=== PATIENT | male | born 1990 | race Caucasian/White ===

== ENCOUNTER 2016-11-16 09:42 | Emergency (ER) | payer SELFPAY ==
[2016-11-16] MEDS ORDERED: NORMAL SALINE 10 ML SYRINGE FLUSH IVP PRN (09:46)
[2016-11-16] MEDS ORDERED: Sodium Chloride 0.9% 1,000 ML PRIMARY IV ONE ×2 (09:46→10:57)
[2016-11-16] MEDS ORDERED: ASPIRIN 81 MG (BABY) CHEWABLE TABLET PO ONE (09:46)
--- NOTE | 2016-11-16 09:46 | PDOC ---
Chest Pain HPI - General Chief Complaint: Chest Pain Stated Complaint: chest pain Date Seen by Provider: 11/16/16 Time Seen by Provider: 09:46 Source: Patient Exam Limitations: POSITIVE: No limitations - History of Present Illness Initial Comments: Kong is a 26 year old man coming in today with chest pain and shortness of breath, onset last night. He had a hard time sleeping due to the discomfort. It was a sharp pain in his left chest that shot to his left shoulder, lasted a few seconds at a time, but would happen several times per hour. His symptoms are better now, but he is still very anxious about it. He reports compliance with his home meds. Last month he overdosed on meth/bath salts, had to go to [facility] due to being intubated and in renal failure. He reports a lot of stress in his life lately and thinks he might just be anxious, but wanted to get checked out. He also didn't take his torsemide for the past 2 days because he thought he was getting dehydrated and his urine was frothy, he says he has "been in rhabdo" since last month. He denies doing any drugs since october 24 2016. - Patient Home Medications Home Medications: Home Medications Albuterol Sulfate [Ventolin Hfa] 1 puff INH Q6H 11/23/14 Montelukast Sodium [Singulair] 10 mg PO DAILY 01/23/15 Amlodipine Besylate 5 mg PO DAILY 11/16/16 Budesonide/Formoterol Fumarate [SYMBICORT] 2 inh IH BID 11/16/16 Cetirizine HCl [Zyrtec] 10 mg PO DAILY 11/16/16 Potassium Chloride [Klor-Con] 1 tab PO DAILY 11/16/16 Torsemide [Demadex] 30 mg PO DAILY 11/16/16 - Patient Allergies Allergies/Adverse Reactions: Allergies Allergy/AdvReac Type Severity Reaction Status Date / Time No Known Allergies Allergy Verified 11/16/16 09:48 Past Medical History - heen HEENT History: Denies History Cardiovascular History: Arrhythmia Respiratory History: Asthma Gastrointestinal History: Denies History Genitourinary History: Denies History Endocrine History: Denies History Musculoskeletal History: Denies History, Other (please comment) Additional Musculoskeletal History: had some type of minor surgical procedure on disk but unsure what Neurological History: Denies History Blood Disorders: Denies History Psychiatric History: Depression, ADHD, Other (please comment) Additional Psychiatric History: ODD History of Sexually Transmitted Diseases: No Cancer History: Denies History History of MDRO: No History of Other Communicable Diseases: No Alcohol Use: Rarely Substance Use Type: Methamphetamines Previous Surgical History: No Anesthesia Reactions: No Malignant Hyperthermia: No Significant Family History: No pertinent family hx Past Medical History Reviewed: Reviewed - No Changes ROS - Limitations ROS Limitations: No Limitations Constitution: REPORTS: Denies Symptoms Cardiovascular: REPORTS: Chest Pain, Heart Racing, Heart Palpitations Respiratory: REPORTS: Shortness Of Breath Neurological: REPORTS: Dizziness Gastrointestinal: REPORTS: Denies GI Symptoms Endocrine: REPORTS: Denies Symptoms Musculoskeletal: REPORTS: Denies MS Symptoms Eyes: REPORTS: Denies Symptoms ENT: REPORTS: Denies Symptoms Skin: REPORTS: Denies Skin Symptoms Lympathic: REPORTS: Denies Lympathic Symptoms Immunologic: POSITIVE: Denies Symptoms Chest Pain PE - General Appearance General Appearance: REPORTS: Alert, Anxious - HEENT HEENT: POSITIVE: Head Inspection Nml, Eyes Inspection Nml, Ears Inspection Nml, Nose Inspection Nml, Oral/Dental Inspect. Nml, Pharynx Inspect. Nml, PERRL, EOMI - Neck Neck: REPORTS: Normal Inspection, No Carotid Bruit - Respiratory Respiratory: REPORTS: No Respiratory Distress, Breath Sounds Normal, Chest Non- Tender - Cardiovascular Cardiovascular: REPORTS: Heart Sounds Normal, Equal Pulses, Strong Pulses, No Murmur, No Gallop, Other (mild tachycardia) Peripheral Pulses: Radial (R): 2+, Radial (L): 2+ - Abdomen Abdomen: Soft: (All Quadrants), Normal Bowel Sounds: (All Quadrants), No Hepatomegaly: (All Quadrants), No Guarding: (All Quadrants), No Rebound: (All Quadrants) - Skin Skin: REPORTS: Intact, Normal For Race, Warm, Dry, Other (no jaundice) - Extremities Extremity: Non-Tender: (All Extremities), Normal ROM: (All Extremities), Normal Inspection: (All Extremities) Additional Extremities Details: no lower extremity edema - Neurological / Psychological Neurological: POSITIVE: Affect Apporpriate, Oriented X3, 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 US of the right abdomen shows no biliary pathology, liver appeared normal Lab Results:: Laboratory Results 11/16/16 11/16/16 11/16/16 Range/Units 09:48 10:05 10:24 WBC 8.29 (4.8-10.8) 10^3/uL RBC 4.10 L (4.70-6.10) 10^6/uL Hgb 11.4 L (14.0-18.0) g/dL Hct 34.3 L (42.0-52.0) % MCV 83.7 (80-90) FL MCH 27.8 (27-31) PG MCHC 33.2 (33-37) g/dL RDW Std Deviation 38.2 L (39-50) fL RDW Coeff of Donnie 12.8 (11.5-14.5) % Plt Count 423 H (140-350) 10*3/uL MPV 9.2 (7.4-12.2) FL Immature Gran % (Auto) 0.5 (0-5) % Neut % (Auto) 63.0 (50-80) % Lymph % (Auto) 21.6 (10-50) % [place] % (Auto) 10.6 (5-15) % Eos % (Auto) 3.7 (0-8) % Baso % (Auto) 0.6 (0-1) % Immature Gran # (Auto) 0.04 10*3/UL Neut # (Auto) 5.22 10*3/UL Lymph # (Auto) 1.79 10*3/uL [place] # (Auto) 0.88 H (0.3-0.8) 10*3/UL Eos # (Auto) 0.31 10*3/UL Baso # (Auto) 0.05 10*3/UL WBC Morphology Comment Normal morphology (NORM) Plt Morphology Comment Normal morphology (NORM) RBC Morph Comment Normal morphology (NORM) Sodium 142 (135-145) meq/L Potassium 3.6 L (3.8-5.2) meq/L Chloride 104 (98-112) meq/L Carbon Dioxide 25 (23-33) meq/L Anion Gap 13 (5-20) BUN 17 (7-22) mg/dL Creatinine 1.0 (0.70-1.50) mg/dL Estimated GFR > 60 (>60 ml/min/1.73m(2)) BUN/Creatinine Ratio 17.00 (6-20) Glucose 87 (78-110) mg/dL Calculated Osmolality 294.0 H (267-292) mOsm/kg Calcium 9.6 (8.7-10.7) mg/dL Total Bilirubin 0.7 (0.3-1.2) mg/dL AST 370 H (21-57) IU/L ALT 205 H (21-72) IU/L Alkaline Phosphatase 63 (38-126) IU/L Total Creatine Kinase 6500 H (55-170) IU/L Troponin I 0.000 (< 0.040) ng/mL Total Protein 7.4 (6.1-8.0) g/dL Albumin 4.3 (3.5-4.8) g/dL Globulin 3.1 (2.50-4.10) g/dL Albumin/Globulin Ratio 1.30 (1.3-2.0) mg/g Ur Collection Type Clean catch urine Clean catch urine Urine Color Yellow Urine Clarity Clear (CLEAR) Urine pH 7.0 (5.0-8.5) Ur Specific [place] 1.010 (1.005-1.030) U Specif Grav (Refrac) 1.010 Urine Protein Negative (NEG) mg/dl Urine Glucose (UA) Negative (NEG) mg/dL Urine Ketones Negative (NEG) Urine Occult Blood Small H (NEG) Urine Nitrate Negative (NEG) Urine Bilirubin Negative (NEG) Urine Urobilinogen 0.2 (0.2) EU/dL Ur Leukocyte Esterase Trace (NEG) Urine RBC 3-5 (NONE) /hpf Urine WBC 5-8 (NONE) Ur Squamous Epith Cells Rare (NONE) Ur Renal Epithelial Cell None (NONE) Urine Crystals None Urine Bacteria Rare (NONE) Urine Casts None (NONE) Urine Mucus Rare (NONE) Urine Trichomonas None (NONE) Urine Yeast None (NONE) Ur Culture Indicated? Culture set Urine Opiates Screen Negative (NEG) Ur Buprenorphine Negative (NEG) Ur Oxycodone Screen Negative (NEG) Urine Methadone Screen Negative (NEG) Ur Propoxyphene Screen Negative (NEG) Barbiturate Screen Negative (NEG) U Tricyclic Antidepress Negative (NEG) Phencyclidine Screen Negative (NEG) Amphetamines Screen Negative (NEG) U Methamphetamines Scrn Negative (NEG) Benzodiazepines Screen Positive H (NEG) Cocaine Screen Negative (NEG) U Marijuana (THC) Screen Negative (NEG) 11/16/16 Range/Units 13:05 WBC (4.8-10.8) 10^3/uL RBC (4.70-6.10) 10^6/uL Hgb (14.0-18.0) g/dL Hct (42.0-52.0) % MCV (80-90) FL MCH (27-31) PG MCHC (33-37) g/dL RDW Std Deviation (39-50) fL RDW Coeff of Donnie (11.5-14.5) % Plt Count (140-350) 10*3/uL MPV (7.4-12.2) FL Immature Gran % (Auto) (0-5) % Neut % (Auto) (50-80) % Lymph % (Auto) (10-50) % [place] % (Auto) (5-15) % Eos % (Auto) (0-8) % Baso % (Auto) (0-1) % Immature Gran # (Auto) 10*3/UL Neut # (Auto) 10*3/UL Lymph # (Auto) 10*3/uL [place] # (Auto) (0.3-0.8) 10*3/UL Eos # (Auto) 10*3/UL Baso # (Auto) 10*3/UL WBC Morphology Comment (NORM) Plt Morphology Comment (NORM) RBC Morph Comment (NORM) Sodium (135-145) meq/L Potassium (3.8-5.2) meq/L Chloride (98-112) meq/L Carbon Dioxide (23-33) meq/L Anion Gap (5-20) BUN (7-22) mg/dL Creatinine (0.70-1.50) mg/dL Estimated GFR (>60 ml/min/1.73m(2)) BUN/Creatinine Ratio (6-20) Glucose (78-110) mg/dL Calculated Osmolality (267-292) mOsm/kg Calcium (8.7-10.7) mg/dL Total Bilirubin (0.3-1.2) mg/dL AST (21-57) IU/L ALT (21-72) IU/L Alkaline Phosphatase (38-126) IU/L Total Creatine Kinase 5296 H (55-170) IU/L Troponin I 0.000 (< 0.040) ng/mL Total Protein (6.1-8.0) g/dL Albumin (3.5-4.8) g/dL Globulin (2.50-4.10) g/dL Albumin/Globulin Ratio (1.3-2.0) mg/g Ur Collection Type Urine Color Urine Clarity (CLEAR) Urine pH (5.0-8.5) Ur Specific [place] (1.005-1.030) U Specif Grav (Refrac) Urine Protein (NEG) mg/dl Urine Glucose (UA) (NEG) mg/dL Urine Ketones (NEG) Urine Occult Blood (NEG) Urine Nitrate (NEG) Urine Bilirubin (NEG) Urine Urobilinogen (0.2) EU/dL Ur Leukocyte Esterase (NEG) Urine RBC (NONE) /hpf Urine WBC (NONE) Ur Squamous Epith Cells (NONE) Ur Renal Epithelial Cell (NONE) Urine Crystals Urine Bacteria (NONE) Urine Casts (NONE) Urine Mucus (NONE) Urine Trichomonas (NONE) Urine Yeast (NONE) Ur Culture Indicated? Urine Opiates Screen (NEG) Ur Buprenorphine (NEG) Ur Oxycodone Screen (NEG) Urine Methadone Screen (NEG) Ur Propoxyphene Screen (NEG) Barbiturate Screen (NEG) U Tricyclic Antidepress (NEG) Phencyclidine Screen (NEG) Amphetamines Screen (NEG) U Methamphetamines Scrn (NEG) Benzodiazepines Screen (NEG) Cocaine Screen (NEG) U Marijuana (THC) Screen (NEG) EKG Interpreted/Reviewed By Me:: Yes (mild tachycardia, no ST segment elevations , otherwise normal intervals) - Patient's Progress MDM / ED Course: Mr Alex is a 26 year old man coming in today with chest discomfort, of unclear etiology at this point. With his recent stress and hixtory of anxiety in the past, he likely had a panic attack. Given his recent history, we observed him in the emergency room for several hours. He got one dose of aspirin and one dose of ativan. After the ativan, he was calm and no more symptoms. He did not develop any symptoms while here. His two-set troponin was negative. His CK was elevated, consistent with his history of kidney damage. His creatinine was normal. After 2 liters of normal saline, his CK went down. He felt well. He has an appointment with Dr Gabriel on 11/22/2016, we recommended he keep it. I spoke with Dr Gabriel and updated him on Kong's kidney function and total CK. He was okay with Kong following up on Nov 22. Patient Care Time - Estimated PCT Patient Care Time (In Minutes): 60 Vital Signs - Recent Vital Signs Vital Signs: Vital Signs (Last 8 hours) Temp Pulse Resp BP Pulse Ox 11/16/16 09:44 98.3 F 116 H 18 159/94 99 - VS Reviewed Vital Signs Reviewed: Yes Discharge Clinical Impression: Nonspecific chest pain, Abnormal creatine kinase level Discharge Disposition: Discharged to Home Condition: Fair Additional Instructions: Follow up with Dr Gabirel on 11/22/2016. Drink 2.5 to 3 Liters every day. I spoke with Dr Gabriel and updated him about your kidney function and rhabdo.
--- NOTE | 2016-11-16 09:51 | EKG ---
[address] [address] Measurements Intervals [place] Rate: 117 P: 78 ID: [id number] QRS: 77 QRSD: 94 T: 67 QT: 302 QTc: 372 Interpretive Statements SINUS TACHYCARDIA ABNORMAL RHYTHM ECG Compared to ECG 10/24/2016 11:25:39 Supraventricular tachycardia no longer present ST (T wave) deviation no longer present Electronically Signed On 11-16-16 17:25:03 [facility] by Eric Chávez [id number]
[2016-11-16] MEDS ORDERED: LORazepam 2 MG/1 ML VIAL IVP ONE (09:54)
[2016-11-16 10:21] LABS: BASOPHILS # (AUTO) 0.05 10*3/UL; BASOPHILS % (AUTO) 0.6 % (0-1); EOSINOPHILS % (AUTO) 3.7 % (0-8); HEMATOCRIT 34.3 % (42.0-52.0); HEMOGLOBIN 11.4 g/dL (14.0-18.0); IMM GRAN % (AUTO) 0.5 % (0-5); IMM GRAN# (AUTO) 0.04 10*3/UL; LYMPHOCYTES # (AUTO) 1.79 10*3/uL; LYMPHOCYTES % (AUTO) 21.6 % (10-50); MEAN CORPUSCULAR HEMOGLOBIN 27.8 PG (27-31); MEAN CORPUSCULAR HGB CONC 33.2 g/dL (33-37); MEAN PLATELET VOLUME 9.2 FL (7.4-12.2); MONOCYTES # (AUTO) 0.88 10*3/UL (0.3-0.8); MONOCYTES % (AUTO) 10.6 % (5-15); NEUTROPHILS # (AUTO) 5.22 10*3/UL; RDW COEFFICIENT OF VARIATION 12.8 % (11.5-14.5); WHITE BLOOD COUNT 8.29 10^3/uL (4.8-10.8)
[2016-11-16 10:31] LABS: PLATELET MORPHOLOGY COMMENT NORMAL MORPHOLOGY (NORM)
--- NOTE | 2016-11-16 10:31 | DI ---
XR CXR 1VW,11/16/2016 9:46 AM: Clinical History: Chest pain Previous Exam: October 24, 2016 Findings: A single frontal radiograph of the chest is obtained, and demonstrate clear lungs. The cardiomediasti num and bony thorax are unremarkable. Impression: Normal chest.
[2016-11-16 10:39] LABS: ASPARTATE AMINO TRANSFERASE 370 IU/L (21-57); BILIRUBIN,TOTAL 0.7 mg/dL (0.3-1.2); BLOOD UREA NITROGEN 17 mg/dL (7-22); CALCIUM 9.6 mg/dL (8.7-10.7); CHLORIDE 104 meq/L (98-112); EST GLOMERULAR FILTRATION > 60 (>60 ml/min/1.73m(2)); GLUCOSE 87 mg/dL (78-110); POTASSIUM 3.6 meq/L (3.8-5.2); SODIUM 142 meq/L (135-145); TOTAL PROTEIN 7.4 g/dL (6.1-8.0)
[2016-11-16 10:51] VITALS: RESP 18; TEMP 98.3
[2016-11-16 13:49] LABS: BILIRUBIN,URINE NEGATIVE (NEG); CLARITY,URINE CLEAR (CLEAR); GLUCOSE, URINE (UA) NEGATIVE (NEG); LEUKOCYTE ESTERASE ,URINE TRACE (NEG); NITRATE,URINE NEGATIVE (NEG); OCCULT BLOOD,URINE SMALL (NEG); PROTEIN,URINE NEGATIVE (NEG); UROBILINOGEN,URINE 0.2 EU/dL (0.2)
[2016-11-16 14:01] LABS: URINE SAMPLE TYPE CLEAN CATCH URINE
[2016-11-16 14:02] LABS: BACTERIA,URINE RARE; SQUAMOUS EPITHELIAL CELL,UR RARE
[2016-11-16 14:02] LABS: CANNABINOID SCREEN,URINE NEGATIVE (NEG); COCAINE SCREEN NEGATIVE (NEG); METHAMPHETAMINES SCREEN,URINE NEGATIVE (NEG); URINE SAMPLE TYPE CLEAN CATCH URINE
--- NOTE | 2016-11-16 15:59 | DI ---
ABDOMINAL ULTRASOUND, 11/16/2016 10:49 AM: Clinical History: Abdominal pain Previous Exam: None at this facility. Scans are performed through the right and left upper quadrants in multiple projections. The gallbladder is well distended and has a normal wall thickness. There were some layering stones in the gallbladder. Common hepatic duct measures 2mm. The visualized portions of the right and left lobes of the liver are normal. There right kidney is normal measuring 11.5 cm in length. The pancreas is unremarkable. READING: Cholelithiasis otherwise unremarkable.
== END 2016-11-16 15:20 | disposition home or self-care (01) ==
LOC: ER 09:42
DX: R07.9 Chest pain, unspecified (principal); R79.89 Other specified abnormal findings of blood chemistry; R06.02 Shortness of breath; R42 Dizziness and giddiness
CPT/HCPCS: 36415; 71010; 76705; 80053; 81001; 81003; 82550; 84484; 85025; 87088; 93005; 93010; 96361; 96374; 99283 ×2; G0477; J2060; J7030

== ENCOUNTER → 2016-11-30 | Outpatient (CLI) | payer SELFPAY ==
[2016-11-30 12:52] LABS: BLOOD UREA NITROGEN 7 mg/dL (7-22); BUN/CREATININE RATIO 7.77 (6-20); CALCIUM 9.9 mg/dL (8.7-10.7); CHLORIDE 105 meq/L (98-112); CREATININE 0.9 mg/dL (0.70-1.50); EST GLOMERULAR FILTRATION > 60 (>60 ml/min/1.73m(2)); GLUCOSE 94 mg/dL (78-110); PHOSPHORUS 3.6 mg/dl (2.4-4.3); POTASSIUM 3.9 meq/L (3.8-5.2); SODIUM 142 meq/L (135-145)
== END ==
LOC: LAB 12:07
PROVIDERS: ATTEND Internal Medicine Nephrology
DX: N17.9 Acute kidney failure, unspecified (principal); M62.82 Rhabdomyolysis
CPT/HCPCS: 36415; 80069; 82550

== ENCOUNTER 2016-12-05 21:13 | Emergency (ER) | payer SELFPAY ==
[2016-12-05 21:21] VITALS: RESP 20; TEMP 98.5
--- NOTE | 2016-12-05 21:40 | PDOC ---
Male Genitourinary Problem HPI - General Chief Complaint: Genitourinary Complaint Stated Complaint: FEELS LIKE HE CAN NOT URINATE Date Seen by Provider: 12/05/16 Time Seen by Provider: 21:35 Source: POSITIVE: Patient Exam Limitations: POSITIVE: No limitations Nurse's Notes Reviewed & Considered: Yes - History of Present Illness Initial Comments: This is a 26-year-old male who presents to the emergency department with history of minimal urine output since about 4:30 this afternoon after he had a Estrella catheter placed. He had a urethral stricture dilated by Dr. Valles earlier today and the Estrella was placed to allow that to heal properly. He has a history of kidney problems from a past drug overdose. He has no fevers chills or body aches, no nausea or vomiting. - Patient Home Medications Home Medications: Home Medications Albuterol Sulfate [Ventolin Hfa] 1 puff INH Q6H 11/23/14 Amlodipine Besylate 5 mg PO DAILY 11/16/16 Budesonide/Formoterol Fumarate [SYMBICORT] 2 inh IH BID 11/16/16 Potassium Chloride [Klor-Con] 1 tab PO DAILY 11/16/16 - Patient Allergies Allergies/Adverse Reactions: Allergies Allergy/AdvReac Type Severity Reaction Status Date / Time No Known Allergies Allergy Verified 12/05/16 21:15 Past Medical History - heen HEENT History: Denies History Cardiovascular History: Arrhythmia Respiratory History: Asthma Gastrointestinal History: Denies History Genitourinary History: Renal Disease Endocrine History: Denies History Musculoskeletal History: Other (please comment) Additional Musculoskeletal History: had some type of minor surgical procedure on disk but unsure what Neurological History: Denies History Blood Disorders: Denies History Psychiatric History: Depression, ADHD, Other (please comment) Additional Psychiatric History: ODD History of Sexually Transmitted Diseases: No Male Reproductive History: Denies History Cancer History: Denies History In Past Year Been Physically Harmed or Verbally Threatened: No History of MDRO: No History of Other Communicable Diseases: No Tobacco Use: Never Smoker Alcohol Use: None Substance Use Type: Methamphetamines Previous Surgical History: No Anesthesia Reactions: No Malignant Hyperthermia: No Significant Family History: No pertinent family hx Past Medical History Reviewed: Reviewed - Changes Made ROS - Limitations ROS Limitations: No Limitations Constitution: DENIES: Chills, Fever Gastrointestinal: REPORTS: Abdominal Pain (Suprapubic pain). DENIES: Nausea, Vomitting Musculoskeletal: DENIES: Muscle Aches Genitourinary: REPORTS: Difficulty Urinating Male Genitourinary Exam - General Appearance General Appearance: POSITIVE: Alert, Cooperative, Moderate Distress - Abdomen Additional Details: Abdomen is soft, nondistended, with mild to moderate suprapubic tenderness to palpation. No rebound or guarding. - HEENT HEENT: POSITIVE: PERRL, EOMI - Respiratory Respiratory: POSITIVE: No Respiratory Distress, Breath Sounds Normal - Cardiovascular Cardiovascular: POSITIVE: Regular Rate and Rhythm, Heart Sounds Normal Male Genitourinary Progress - Results Reviewed by me Lab Results Reviewed: Yes Lab Results: Laboratory Results 12/05/16 Range/Units 22:56 WBC 6.19 (4.8-10.8) 10^3/uL RBC 4.67 L (4.70-6.10) 10^6/uL Hgb 13.2 L (14.0-18.0) g/dL Hct 38.3 L (42.0-52.0) % MCV 82.0 (80-90) FL MCH 28.3 (27-31) PG MCHC 34.5 (33-37) g/dL RDW Std Deviation 39.7 (39-50) fL RDW Coeff of Donnie 13.5 (11.5-14.5) % Plt Count 290 (140-350) 10*3/uL MPV 9.4 (7.4-12.2) FL Immature Gran % (Auto) 0.3 (0-5) % Neut % (Auto) 37.4 L (50-80) % Lymph % (Auto) 45.2 (10-50) % [place] % (Auto) 11.8 (5-15) % Eos % (Auto) 4.7 (0-8) % Baso % (Auto) 0.6 (0-1) % Immature Gran # (Auto) 0.02 10*3/UL Neut # (Auto) 2.31 10*3/UL Lymph # (Auto) 2.80 10*3/uL [place] # (Auto) 0.73 (0.3-0.8) 10*3/UL Eos # (Auto) 0.29 10*3/UL Baso # (Auto) 0.04 10*3/UL WBC Morphology Comment Normal morphology (NORM) Plt Morphology Comment Normal morphology (NORM) RBC Morph Comment Normal morphology (NORM) Sodium 140 (135-145) meq/L Potassium 3.4 L (3.8-5.2) meq/L Chloride 107 (98-112) meq/L Carbon Dioxide 18 L (23-33) meq/L Anion Gap 15 (5-20) BUN 10 (7-22) mg/dL Creatinine 0.9 (0.70-1.50) mg/dL Estimated GFR > 60 (>60 ml/min/1.73m(2)) BUN/Creatinine Ratio 11.11 (6-20) Glucose 90 (78-110) mg/dL Calculated Osmolality 288.0 (267-292) mOsm/kg Calcium 10.0 (8.7-10.7) mg/dL - Patient's Progress Pain Medication Addressed: POSITIVE: Yes Re-Examine Time:: 23:29 (patient improved) Status: POSITIVE: Improved MDM / ED Course: Emergency room course: After initial evaluation, the patient was given a dose of [place] by mouth for the pain. His catheter was flushed with saline, and according to the nurse, it flushed easily. The only concern was that she only returned about the same amount of fluid as she flushed with. I subsequently had the nurse scan his bladder, which only showed 40 mL of urine in his bladder. He is supposed to have kidney function test drawn today that he missed , so that was drawn here in the department. His basic metabolic panel was essentially normal. His pain is mildly improved on recheck after results were discussed with him. He'll be sent home with 2 more [place] for pain and given prescriptions for [place] and Ditropan for bladder spasm. She called Dr. Valles in the morning if symptoms persist. Patient Care Time - Estimated PCT Patient Care Time (In Minutes): 20 Vital Signs - Recent Vital Signs Vital Signs: Vital Signs (Last 8 hours) Temp Pulse Resp BP Pulse Ox 12/05/16 21:17 98.5 F 104 H 20 149/100 95 Discharge Clinical Impression: Bladder spasms Discharge Disposition: Discharged to Home Condition: Stable Patient Instructions Given at Discharge: Urinary Retention in Men (ED)
[2016-12-05] MEDS ORDERED: HYDROcodone-APAP 5 MG -325 MG TABLET PO ONE (21:42)
[2016-12-05 22:58] LABS: BASOPHILS # (AUTO) 0.04 10*3/UL; BASOPHILS % (AUTO) 0.6 % (0-1); EOSINOPHILS % (AUTO) 4.7 % (0-8); HEMATOCRIT 38.3 % (42.0-52.0); HEMOGLOBIN 13.2 g/dL (14.0-18.0); IMM GRAN % (AUTO) 0.3 % (0-5); IMM GRAN# (AUTO) 0.02 10*3/UL; LYMPHOCYTES % (AUTO) 45.2 % (10-50); MEAN CORPUSCULAR HEMOGLOBIN 28.3 PG (27-31); MEAN CORPUSCULAR HGB CONC 34.5 g/dL (33-37); MEAN PLATELET VOLUME 9.4 FL (7.4-12.2); MONOCYTES # (AUTO) 0.73 10*3/UL (0.3-0.8); MONOCYTES % (AUTO) 11.8 % (5-15); NEUTROPHILS # (AUTO) 2.31 10*3/UL; NEUTROPHILS % (AUTO) 37.4 % (50-80); RDW COEFFICIENT OF VARIATION 13.5 % (11.5-14.5); RED BLOOD COUNT 4.67 10^6/uL (4.70-6.10); WHITE BLOOD COUNT 6.19 10^3/uL (4.8-10.8)
[2016-12-05 23:00] LABS: PLATELET MORPHOLOGY COMMENT NORMAL MORPHOLOGY (NORM)
[2016-12-05 23:07] LABS: BLOOD UREA NITROGEN 10 mg/dL (7-22); BUN/CREATININE RATIO 11.11 (6-20); CHLORIDE 107 meq/L (98-112); CREATININE 0.9 mg/dL (0.70-1.50); EST GLOMERULAR FILTRATION > 60 (>60 ml/min/1.73m(2)); GLUCOSE 90 mg/dL (78-110); POTASSIUM 3.4 meq/L (3.8-5.2); SODIUM 140 meq/L (135-145)
[2016-12-05] MEDS ORDERED: HYDROcodone-APAP 5 MG -325 MG TABLET PO SCH (23:45)
== END 2016-12-05 23:50 | disposition home or self-care (01) ==
LOC: ER 21:13
DX: R10.33 Periumbilical pain (principal); N32.89 Other specified disorders of bladder
CPT/HCPCS: 80048; 85025; 99282

== ENCOUNTER → 2016-12-05 | Outpatient (CLI) | payer SELFPAY ==
[2016-12-05 23:11] LABS: BLOOD UREA NITROGEN 10 mg/dL (7-22); CHLORIDE 106 meq/L (98-112); CREATININE 0.8 mg/dL (0.70-1.50); EST GLOMERULAR FILTRATION > 60 (>60 ml/min/1.73m(2)); GLUCOSE 86 mg/dL (78-110); POTASSIUM 3.8 meq/L (3.8-5.2); SODIUM 140 meq/L (135-145)
== END ==
LOC: LAB 11:30
PROVIDERS: ATTEND Internal Medicine Nephrology
DX: N17.9 Acute kidney failure, unspecified (principal); M62.82 Rhabdomyolysis
CPT/HCPCS: 36415; 80069; 82550

== ENCOUNTER → 2016-12-21 | Outpatient (CLI) | payer SELFPAY ==
[2016-12-21 14:29] LABS: BLOOD UREA NITROGEN 9 mg/dL (7-22); CALCIUM 9.5 mg/dL (8.7-10.7); CHLORIDE 101 meq/L (98-112); CREATININE 0.9 mg/dL (0.70-1.50); EST GLOMERULAR FILTRATION > 60 (>60 ml/min/1.73m(2)); GLUCOSE 113 mg/dL (78-110); POTASSIUM 4.1 meq/L (3.8-5.2); SODIUM 139 meq/L (135-145)
== END ==
LOC: LAB 13:46
PROVIDERS: ATTEND Internal Medicine Nephrology
DX: N17.9 Acute kidney failure, unspecified (principal); M62.82 Rhabdomyolysis
CPT/HCPCS: 36415; 80069; 82550

== ENCOUNTER → 2017-01-01 | Outpatient (CLI) | payer SELFPAY ==
[2017-01-01 09:08] LABS: BLOOD UREA NITROGEN 13 mg/dL (7-22); BUN/CREATININE RATIO 14.44 (6-20); CHLORIDE 105 meq/L (98-112); CREATININE 0.9 mg/dL (0.70-1.50); EST GLOMERULAR FILTRATION > 60 (>60 ml/min/1.73m(2)); GLUCOSE 130 mg/dL (78-110); PHOSPHORUS 4.2 mg/dl (2.4-4.3); POTASSIUM 3.7 meq/L (3.8-5.2); SODIUM 143 meq/L (135-145)
== END ==
LOC: LAB 08:06
PROVIDERS: ATTEND Internal Medicine Nephrology
DX: Z87.448 Personal history of other diseases of urinary system (principal); Z86.39 Personal history of other endocrine, nutritional and metabolic disease
CPT/HCPCS: 36415; 80069

== ENCOUNTER → 2017-03-13 | Outpatient (CLI) | payer BC ==
[2017-03-13 11:24] LABS: BASOPHILS # (AUTO) 0.04 10*3/UL; BASOPHILS % (AUTO) 0.6 % (0-1); EOSINOPHILS % (AUTO) 4.5 % (0-8); HEMATOCRIT 47.8 % (42.0-52.0); HEMOGLOBIN 16.4 g/dL (14.0-18.0); LYMPHOCYTES # (AUTO) 2.19 10*3/uL; MEAN CORPUSCULAR HEMOGLOBIN 27.7 PG (27-31); MEAN CORPUSCULAR HGB CONC 34.3 g/dL (33-37); MEAN CORPUSCULAR VOLUME 80.9 FL (80-90); MEAN PLATELET VOLUME 9.7 FL (7.4-12.2); MONOCYTES # (AUTO) 0.64 10*3/UL (0.3-0.8); MONOCYTES % (AUTO) 9.7 % (5-15); NEUTROPHILS # (AUTO) 3.45 10*3/UL; RED BLOOD COUNT 5.91 10^6/uL (4.70-6.10)
[2017-03-13 11:29] LABS: PLATELET MORPHOLOGY COMMENT NORMAL MORPHOLOGY (NORM); RBC MORPHOLOGY COMMENT NORMAL MORPHOLOGY (NORM); WBC MORPHOLOGY COMMENT NORMAL MORPHOLOGY (NORM)
[2017-03-13 11:36] LABS: BILIRUBIN,URINE NEGATIVE (NEG); COLOR,URINE YELLOW; GLUCOSE, URINE (UA) NEGATIVE (NEG); NITRATE,URINE NEGATIVE (NEG); OCCULT BLOOD,URINE NEGATIVE (NEG); PROTEIN,URINE NEGATIVE (NEG); UROBILINOGEN,URINE 0.2 mg/dL (0.2)
[2017-03-13 11:38] LABS: CLARITY,URINE CLEAR (CLEAR)
[2017-03-13 11:44] LABS: BLOOD UREA NITROGEN 12 mg/dL (7-22); BUN/CREATININE RATIO 17.14 (6-20); CALCIUM 9.9 mg/dL (8.7-10.7); EST GLOMERULAR FILTRATION > 60 (>60 ml/min/1.73m(2)); SERUM ALBUMIN 4.6 g/dL (3.5-4.8)
[2017-03-13 11:45] LABS: RBC,URINE 0 /hpf; URINE SAMPLE TYPE VOIDED SPECIMEN; WBC,URINE RARE
[2017-03-13 12:05] LABS: CHOL/HDL RATIO 5.78 RATIO (0-4.0); LDL CHOLESTEROL,CALCULATED 119.4 mg/dL
== END ==
LOC: MOB LAB 09:13
PROVIDERS: ATTEND Internal Medicine
DX: K62.5 Hemorrhage of anus and rectum (principal); E66.9 Obesity, unspecified; N99.114 Postprocedural urethral stricture, male, unspecified; Z87.448 Personal history of other diseases of urinary system; Z87.898 Personal history of other specified conditions; Z86.39 Personal history of other endocrine, nutritional and metabolic disease
CPT/HCPCS: 36415; 80053; 80061; 81001; 84443; 85025

== ENCOUNTER 2017-03-29 21:02 | Emergency (ER) | payer BC ==
[2017-03-29 21:24] VITALS: RESP 20; TEMP 96.7
--- NOTE | 2017-03-29 21:42 | EKG ---
[address] [address] Measurements Intervals [place] Rate: 78 P: 31 MS: 153 QRS: 28 QRSD: 97 T: 58 QT: 345 QTc: 378 Interpretive Statements SINUS RHYTHM Compared to ECG 11/16/2016 09:44:46 Sinus tachycardia no longer present Electronically Signed On 03-30-17 15:06:27 [facility] by Eric Chávez [id number]
[2017-03-29 22:07] LABS: BASOPHILS # (AUTO) 0.11 10*3/UL; BASOPHILS % (AUTO) 1.1 % (0-1); EOSINOPHILS # (AUTO) 0.69 10*3/UL; EOSINOPHILS % (AUTO) 6.9 % (0-8); HEMATOCRIT 45.7 % (42.0-52.0); LYMPHOCYTES # (AUTO) 3.38 10*3/uL; MEAN CORPUSCULAR HEMOGLOBIN 28.3 PG (27-31); MEAN CORPUSCULAR VOLUME 80.9 FL (80-90); MEAN PLATELET VOLUME 9.4 FL (7.4-12.2); MONOCYTES # (AUTO) 0.85 10*3/UL (0.3-0.8); MONOCYTES % (AUTO) 8.5 % (5-15); NEUTROPHILS # (AUTO) 4.93 10*3/UL; NEUTROPHILS % (AUTO) 49.4 % (50-80); PLATELET MORPHOLOGY COMMENT NORMAL MORPHOLOGY (NORM); RBC MORPHOLOGY COMMENT NORMAL MORPHOLOGY (NORM); RED BLOOD COUNT 5.65 10^6/uL (4.70-6.10); WBC MORPHOLOGY COMMENT NORMAL MORPHOLOGY (NORM)
[2017-03-29] MEDS ORDERED: ACETAMINOPHEN 500 MG TABLET PO ONE (22:16)
[2017-03-29 22:17] LABS: AMPHETAMINE SCREEN NEGATIVE (NEG); CANNABINOID SCREEN,URINE NEGATIVE (NEG); COCAINE SCREEN NEGATIVE (NEG); METHADONE URINE SCREEN NEGATIVE (NEG); METHAMPHETAMINES SCREEN,URINE NEGATIVE (NEG); OPIATE SCREEN,URINE NEGATIVE (NEG); URINE SAMPLE TYPE CLEAN CATCH URINE; URINE SPECIFIC GRAVITY - MAN 1.022
[2017-03-29 22:19] LABS: BLOOD UREA NITROGEN 11 mg/dL (7-22); BUN/CREATININE RATIO 13.75 (6-20); CALCIUM 9.4 mg/dL (8.7-10.7); EST GLOMERULAR FILTRATION > 60 (>60 ml/min/1.73m(2)); SERUM ALBUMIN 4.3 g/dL (3.5-4.8)
--- NOTE | 2017-03-29 23:09 | DI ---
HISTORY: Headache. COMPARISON: None. TECHNIQUE: Contiguous axial unenhanced images of the brain were obtained from the skull base through the vertex. FINDINGS: There is no evidence of acute bleeding. No midline shift or downwards herniation is noted . There is beam hardening in the posterior fossa. The cortical white matter junction is normal. No acute fractures are seen. There is dental caries disease. Left maxillary and ethmoid sinus dise ase is also demonstrated. There is dense material in the left maxillary sinus which can be seen in f ungal infection. Please correlate clinically. IMPRESSION: 1. No CT evidence of acute intracranial hemorrhage.
--- NOTE | 2017-03-30 00:15 | PDOC ---
General Adult HPI - General Chief Complaint: General Medical Stated Complaint: VISION CHANGES WITH POSSIBLE HYPERTENSION Date Seen by Provider: 03/29/17 Time Seen by Provider: 21:30 Source: POSITIVE: Patient Exam Limitations: POSITIVE: No limitations Nurse's Notes Reviewed & Considered: Yes - History of Present Illness Initial Comment: The patient is a 27-year-old male. He states that since December he has had episodes of "difficulty focusing"he states he has some difficulty focusing his vision and he also states he has periods of "feeling detached and having a hard time concentrating." He states he has a history of migraine headaches. He states he has a past history of methamphetamine abuse, but has not used any methamphetamine in some time. History of ADHD. He takes metoprolol albuterol Symbicort and Zyrtec. History of asthma. No focal sensory or motor symptoms. No chest pain or dyspnea. No GI or symptoms. No fevers or chills. No rashes or skin changes. He wears glasses. Have you received a tetanus shot in the past 10 years?: Yes Body Location Affected: REPORTS: Other (As above) Timing: REPORTS: Intermittent (Especially over the past 2 days) Duration: >1 week (Since December) Severity: Moderate Quality: REPORTS: Other (No pain anywhere) Context: DENIES: None, Sitting, Standing, Activity, Emotional stress, Coughing, Recent Trauma, Recent Surgery, Sleep, Rest, Lifting, Turning, Bending, Fall, Near Fall, Other Modifying Factors: worse with: Nothing, Analgesics, Antacids, Breathing, Coughing, Defecating, Vomiting, Eating, Exercise, Lying down, Urinating, Palpation, Movement, Rest, Upright Position, Walking, Remaining Still, Other Associated Symptoms: As above Similar Symptoms Previously: Yes (as above) Recent Care Received: REPORTS: Recently Seen, Hospitalized (Recently seen and hospitalized in [facility] for similar symptoms; no pathology reportedly found.) Any Prior Injuries Related to Current Complaint?: No - Patient Home Medications Home Medications: Home Medications Budesonide/Formoterol Fumarate [SYMBICORT] 2 inh IH BID 11/16/16 Cetirizine HCl [Zyrtec] 1 tab PO QD tab 03/11/17 Metoprolol Succinate 1 tab PO DAILY tab 03/11/17 Albuterol Sulfate [Ventolin Hfa] 2 puff INH Q4H PRN #1 inhaler 03/12/17 - Patient Allergies Allergies/Adverse Reactions: Allergies Allergy/AdvReac Type Severity Reaction Status Date / Time No Known Allergies Allergy Verified 03/29/17 21:09 Past Medical History - heen HEENT History: Denies History Cardiovascular History: Arrhythmia Respiratory History: Asthma Gastrointestinal History: Denies History Genitourinary History: Renal Disease Endocrine History: Denies History Musculoskeletal History: Other (please comment) Additional Musculoskeletal History: had some type of minor surgical procedure on disk but unsure what Neurological History: Denies History Blood Disorders: Denies History Psychiatric History: Depression, ADHD, Other (please comment) Additional Psychiatric History: ODD History of Sexually Transmitted Diseases: No Male Reproductive History: Denies History Cancer History: Denies History In Past Year Been Physically Harmed or Verbally Threatened: No History of MDRO: No History of Other Communicable Diseases: No Tobacco Use: Never Smoker Alcohol Use: None Substance Use Type: Methamphetamines Previous Surgical History: No Anesthesia Reactions: No Malignant Hyperthermia: No Significant Family History: No pertinent family hx Past Medical History Reviewed: Reviewed - No Changes ROS - Limitations ROS Limitations: No Limitations Constitution: REPORTS: Denies Symptoms Cardiovascular: REPORTS: Denies Cardiac Symptoms Respiratory: REPORTS: Denies Resp Symptoms Neurological: REPORTS: Denies Neuro Symptoms, Other (Difficulty concentrating and mentally focusing) Gastrointestinal: REPORTS: Denies GI Symptoms Endocrine: REPORTS: Denies Symptoms Musculoskeletal: REPORTS: Denies MS Symptoms Genitourinary: REPORTS: Denies Symptoms Eyes: REPORTS: Other ("Difficulty focusing") ENT: REPORTS: Denies Symptoms Skin: REPORTS: Denies Skin Symptoms Lympathic: REPORTS: Denies Lympathic Symptoms Immunologic: POSITIVE: Denies Symptoms Psychiatric: POSITIVE: Anxiety General Adult Exam - General Appearance General Appearance: POSITIVE: Alert, Cooperative, No Acute Distress, No Evidence of Trauma - HEENT HEENT: POSITIVE: Head Inspection Nml, Eyes Inspection Nml, Ears Inspection Nml, Nose Inspection Nml, Oral/Dental Inspect. Nml, Pharynx Inspect. Nml, PERRL, EOMI , Other (Visual acuity is 5 left and 20/15 right while wearing glasses) - Pupils Pupil Size: 4 mm: Bilateral (PERRLA) - Neck Neck: POSITIVE: Normal Inspection, Thyroid Normal - Respiratory Respiratory: POSITIVE: No Respiratory Distress, Breath Sounds Normal, Chest Non- Tender - Cardiovascular Cardiovascular: POSITIVE: Regular Rate & Rhythm, No Murmur, No Gallop, PMI Normal Peripheral Pulses: Radial (R): 2+, Radial (L): 2+ - Abdomen Abdomen: Soft: (All Quadrants), Normal Bowel Sounds: (All Quadrants), Denies Tenderness: (All Quadrants), No Splenomegaly: (All Quadrants), No Hepatomegaly: (All Quadrants), No Guarding: (All Quadrants), No Rebound: (All Quadrants), No Palpable Pulse: (All Quadrants), No Palpabale Mass: (All Quadrants), No Distention: (All Quadrants), No Rigidity: (All Quadrants) - Back Back: POSITIVE: Normal Inspection - Skin Skin: POSITIVE: Normal Color, Warm, Dry, No Rash - Extremities Extremity: Non-Tender: (All Extremities), Normal ROM: (All Extremities), Normal Inspection: (All Extremities) - Neurological / Psychological Neurological: POSITIVE: 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 Lab Results Reviewed: Yes Lab Results:: Laboratory Results 03/29/17 03/29/17 Range/Units 22:00 22:05 WBC 9.99 (4.8-10.8) 10^3/uL RBC 5.65 (4.70-6.10) 10^6/uL Hgb 16.0 (14.0-18.0) g/dL Hct 45.7 (42.0-52.0) % MCV 80.9 (80-90) FL MCH 28.3 (27-31) PG MCHC 35.0 (33-37) g/dL RDW Std Deviation 38.8 L (39-50) fL RDW Coeff of Donnie 13.2 (11.5-14.5) % Plt Count 282 (140-350) 10*3/uL MPV 9.4 (7.4-12.2) FL Immature Gran % (Auto) 0.3 (0-5) % Neut % (Auto) 49.4 L (50-80) % Lymph % (Auto) 33.8 (10-50) % [place] % (Auto) 8.5 (5-15) % Eos % (Auto) 6.9 (0-8) % Baso % (Auto) 1.1 H (0-1) % Immature Gran # (Auto) 0.03 10*3/UL Neut # (Auto) 4.93 10*3/UL Lymph # (Auto) 3.38 10*3/uL [place] # (Auto) 0.85 H (0.3-0.8) 10*3/UL Eos # (Auto) 0.69 10*3/UL Baso # (Auto) 0.11 10*3/UL WBC Morphology Comment Normal morphology (NORM) Plt Morphology Comment Normal morphology (NORM) RBC Morph Comment Normal morphology (NORM) Sodium 141 (135-145) meq/L Potassium 3.7 L (3.8-5.2) meq/L Chloride 106 (98-112) meq/L Carbon Dioxide 22 L (23-33) meq/L Anion Gap 13 (5-20) BUN 11 (7-22) mg/dL Creatinine 0.8 (0.70-1.50) mg/dL Estimated GFR > 60 (>60 ml/min/1.73m(2)) BUN/Creatinine Ratio 13.75 (6-20) Glucose 100 (78-110) mg/dL Calculated Osmolality 290.0 (267-292) mOsm/kg Calcium 9.4 (8.7-10.7) mg/dL Total Bilirubin 0.5 (0.3-1.2) mg/dL AST 40 (21-57) IU/L ALT 49 (21-72) IU/L Alkaline Phosphatase 67 (38-126) IU/L C-Reactive Protein 1.0 H (0.0-0.9) mg/dL Total Protein 7.8 (6.1-8.0) g/dL Albumin 4.3 (3.5-4.8) g/dL Globulin 3.5 (2.50-4.10) g/dL Albumin/Globulin Ratio 1.20 L (1.3-2.0) mg/g TSH 2.16 (0.2700-4.2000) uIU/mL Ur Collection Type Clean catch urine U Specif Grav (Refrac) 1.022 Urine Opiates Screen Negative (NEG) Ur Buprenorphine Negative (NEG) Ur Oxycodone Screen Negative (NEG) Urine Methadone Screen Negative (NEG) Ur Propoxyphene Screen Negative (NEG) Barbiturate Screen Negative (NEG) U Tricyclic Antidepress Negative (NEG) Phencyclidine Screen Negative (NEG) Amphetamines Screen Negative (NEG) U Methamphetamines Scrn Negative (NEG) Benzodiazepines Screen Negative (NEG) Cocaine Screen Negative (NEG) U Marijuana (THC) Screen Negative (NEG) EKG Interpreted/Reviewed By Me:: Yes (normal; normal sinus rhythm) EKG Interpretation:: POSITIVE: Normal Sinus Rhythm, Normal Rate, Normal Intervals, Normal [place], Normal QRS, Normal ST/T - Patient's Progress Pain Medication Addressed: POSITIVE: Not Applicable School/Work Release Addressed: POSITIVE: Not Applicable Re-Examine Time: 23:40 Re-Examine Comment: Patient remained comfortable in the emergency emergency room. Sleeping on discharge. Discussed with patient results of CT scan, blood and urine tests and electrocardiogram. Advised symptoms are most likely due to anxiety with somatization. Status: POSITIVE: Unchanged, Re-Examined Antibiotics Given: No - Consult Counseled: POSITIVE: Patient, RE: Lab Results, RE: Radiology Results, RE: DX, RE : Need for F/U Patient Care Time - Estimated PCT Patient Care Time (In Minutes): 50 Vital Signs - Recent Vital Signs Vital Signs: Vital Signs (Last 8 hours) Temp Pulse Resp BP Pulse Ox 03/29/17 21:15 96.7 F L 86 20 124/92 94 - VS Reviewed Vital Signs Reviewed: Yes Discharge Clinical Impression: Anxiety, Anxiety with somatization Discharge Disposition: Discharged to Home Condition: Stable Patient Instructions Given at Discharge: Anxiety (ED) Additional Instructions: Your visual acuity is normal. CT scan of your head is normal as is your electrocardiogram and your blood and urine tests. I think that your symptoms are most likely attributed to an anxiety disorder with somatization. I believe you're going to be fine. Follow-up with your primary care provider. Return here anytime if condition worsens. Follow Up With: NAIMA CANO [Primary Care Provider] - (Instructions as above. Follow-up with your primary care provider. Return as necessary.)
== END 2017-03-29 23:58 | disposition home or self-care (01) ==
LOC: ER 21:02
DX: F41.8 Other specified anxiety disorders (principal); F45.9 Somatoform disorder, unspecified; R51 Headache; H53.8 Other visual disturbances
CPT/HCPCS: 36415; 70450; 80053; 80305; 84443; 85025; 86140; 93005; 93010; 99284

== ENCOUNTER → 2017-05-01 | Outpatient (CLI) | payer BC | LOC: SLEEP LAB 18:33 | PROVIDERS: ATTEND Internal Medicine | DX: G47.33 Obstructive sleep apnea (adult) (pediatric) (principal); G47.34 Idiopathic sleep related nonobstructive alveolar hypoventilation; E66.9 Obesity, unspecified | CPT/HCPCS: 95811 ==